=== PATIENT | female | born 1970 | race Caucasian/White ===

== ENCOUNTER → 2017-04-03 16:25 | Outpatient (CLI) | payer BC | END | disposition home or self-care (01) | LOC: D.MAMMO 02-06 14:30 | DX: Z12.31 Encounter for screening mammogram for malignant neoplasm of breast (principal) ==

== ENCOUNTER 2017-05-02 23:50 | Outpatient (CLI) | payer BC | END 2017-05-02 23:59 | disposition home or self-care (01) | LOC: D.MAMMO 23:50 | DX: R92.8 Other abnormal and inconclusive findings on diagnostic imaging of breast (principal) ==

== ENCOUNTER → 2017-11-26 20:21 | Outpatient (CLI) | payer BC | END | disposition home or self-care (01) | LOC: D.MAMMO 10-17 09:30 | DX: R92.8 Other abnormal and inconclusive findings on diagnostic imaging of breast (principal) ==

== ENCOUNTER 2018-12-24 08:00 | Outpatient (CLI) | payer BC | END 2018-12-24 23:59 | disposition home or self-care (01) | LOC: D.MAMMO 08:00 | PROVIDERS: ATTEND Family Medicine | DX: R90.89 Other abnormal findings on diagnostic imaging of central nervous system (principal) ==